=== PATIENT | female | born 1995 | race Caucasian/White ===

== ENCOUNTER 2017-05-01 02:58 | Emergency (ER) | payer BC ==
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
[~2017-05-01 02:58] MED LIST: FEOSOL325 MG PO; JOLIVETTE0.35 MG PO; MOTRIN800 MG PO; NORCO 5-325 MG1 TAB PO; PERCOCET 5-3251 EACH PO; PRENATAL 1+1)(P1 TAB PO; TYLENOL EXTRA500 MG PO
== END 2017-05-01 04:46 | disposition disaster alternative care site (69) ==
LOC: GMED 02:58
DX: R51 Headache (principal); Q07.00 Arnold-Chiari syndrome without spina bifida or hydrocephalus; Z98.890 Other specified postprocedural states
CPT/HCPCS: J0780; J1200; J1885; J7030